=== PATIENT | female | born 1995 | race Caucasian/White ===

== ENCOUNTER 2017-01-18 22:13 | Emergency (ER) | payer OTHER ==
[~2017-01-18] VITALS: Ht 157.5 cm; Wt 72.6 kg
[2017-01-18 22:21] VITALS: BP 118/74
--- NOTE | 2017-01-18 22:46 | ED SKIN/ALLERGY COMPLAINT ---
History of Present Illness General Chief Complaint: Skin Rash/ Abcess Stated Complaint: HIVES Source: patient Exam Limitations: no limitations Vital Signs & Intake/Output Vital Signs & Intake/Output Vital Signs Date Time Temp Pulse Resp B/P Pulse O2 O2 Flow FiO2 Ox Delivery Rate 01/18 2221 98.3 89 15 118/74 100 Room Air ED Intake and Output 01/19 0000 01/18 1200 Intake Total Output Total Balance Patient 160 lb Weight Allergies Coded Allergies: amoxicillin (Severe, HIVES 01/18/17) codeine (Severe, HIVES 01/18/17) guaifenesin (From MUCINEX) (Severe, DIARRHEA 01/18/17) Reconcile Medications Prednisolone 15 MG/5 ML SOLUTION 10 ML PO QDAY allergic reaction x 3 days Triage Note: PT TO ED FOR HIVES ON HER ABD, BUTT AND INNER THIGHS, TOOK 75MG BENADRYL AT APPROX 8:45 WITH SOME IMPROVEMENT. DENIES ANY THROAT TIGHTNESS, NO STRIDOR NOTED, NO DIFFICULTY BREATHING. Triage Nurses Notes Reviewed? yes Onset: Gradual Duration: hour(s): Timing: recent history Severity: moderate Location: torso Possible Factors: no cause identified Modifying Factors: Improves With: antihistamine. Associated Symptoms: hives : No Patient currently breastfeeds: No HPI: 21-year-old woman with a prior history of urticaria presents with urticaria on her trunk that started this evening. She took 3 tablets of Benadryl without significant effect. She had no dyspnea or tongue swelling or lip swelling. She cannot identify a possible cause. She did not eat any peanuts, shellfish, strawberries, eggs tonight. She notes that she has had urticaria in the past with stress. She is otherwise well and has no other concerns. Past History Travel History Traveled to [place] past 21 day No Medical History Any Pertinent Medical History? see below for history Neurological: NONE EENT: SEASONAL ALLERGIES Cardiovascular: NONE Respiratory: ASTHMA Gastrointestinal: NONE Hepatic: NONE Renal: NONE Musculoskeletal: NONE Psychiatric: NONE Endocrine: HASHIOMOTOS PITUITARY TUMOR Blood Disorders: NONE Cancer(s): NONE BIRTH ATTENDANT/Reproductive: OVARIAN CYSTS Surgical History Surgical History: none Psychosocial History What is your primary language Turkmen Tobacco Use: Never used ETOH Use: occasional use Illicit Drug Use: denies illicit drug use Family History Hx Contributory? No Review of Systems Review of Systems Constitutional: Reports: no symptoms. EENTM: Reports: no symptoms. Respiratory: Reports: no symptoms. Cardiovascular: Reports: no symptoms. GI: Reports: no symptoms. Genitourinary: Reports: no symptoms. Musculoskeletal: Reports: no symptoms. Skin: Reports: no symptoms. Neurological/Psychological: Reports: no symptoms. Hematologic/Endocrine: Reports: no symptoms. Immunologic/Allergic: Reports: no symptoms. All Other Systems: Reviewed and Negative Physical Exam Physical Exam General Appearance: well developed/nourished, mild distress Head: atraumatic Eyes: Bilateral: PERRL, EOMI. Ears, Nose, Throat: normal pharynx, normal ENT inspection, hearing grossly normal Neck: normal inspection, supple Respiratory: normal breath sounds Cardiovascular: regular rate/rhythm Gastrointestinal: soft, non-tender Back: normal inspection Extremities: normal inspection, normal range of motion, no edema Neurologic/Psych: awake, alert, oriented x 3, normal mood/affect Lymphatic: no anterior cervical sanju Progress Differential Diagnosis: allergic reaction, asthma, urticaria Plan of Care: will intensify treatment with decadron... advocated close follow up. Departure Departure Disposition: HOME OR SELF CARE Condition: Stable Clinical Impression Primary Impression: Urticaria Referrals: UNKNOWN (PCP/Family) Departure Forms: Customer Survey General Discharge Information Prescriptions: Current Visit Scripts Prednisolone 10 ML PO QDAY #30 ML x 3 days
[2017-01-18] MEDS ORDERED: PREDNISOLO15 MG/5 M4 PO (22:47)
== END 2017-01-18 22:54 ==
LOC: ERH 22:13
DX: L50.9 Urticaria, unspecified (principal)
CPT/HCPCS: J1100